=== PATIENT | female | born 2000 | race Caucasian/White ===

== ENCOUNTER → 2020-05-31 | Outpatient (CLI) | payer OTHER ==
[2020-05-31 14:37] LABS: BASOPHILS % (AUTO) 1 % (0-1); EOSINOPHILS % (AUTO) 0 % (1-7); LYMPHOCYTES % (AUTO) 24 % (22-44); MEAN CORPUSCULAR HEMOGLOBIN 31.1 pg (27.0-34.8); MEAN CORPUSCULAR HGB CONC 34.7 g/dL (32.4-35.8); MEAN PLATELET VOLUME 8.3 fL (7.4-10.4); MONOCYTES % (AUTO) 6 % (2-9); NEUTROPHILS % (AUTO) 69 % (42-75); PLATELET COUNT 366 x10^3/uL (130-400); RED CELL DISTRIBUTION WIDTH 12.8 % (9.6-15.2)
[2020-05-31 14:43] LABS: MD NO
[2020-05-31 14:48] LABS: ALBUMIN 4.1 g/dL (3.4-5.0); ANION GAP 7 mmol/L (5-15); CALCIUM 9.2 mg/dL (8.5-10.1); CHLORIDE 104 mmol/L (98-107)
[2020-05-31 14:58] LABS: % IRON SATURATION 40 % (20-55); ALANINE AMINOTRANSFERASE 35 U/L (12-78); ALKALINE PHOSPHATASE 101 U/L (45-117); BILIRUBIN,TOTAL 0.5 mg/dL (0.2-1.0); IRON LEVEL 129 mcg/dL (50-170); T4 (THYROXINE) 9.1 mcg/dL (4.8-13.9); TOTAL IRON BINDING CAPACITY 326 mcg/dL (250-450)
== END | disposition home or self-care (01) ==
LOC: LAB 14:18
PROVIDERS: ATTEND Family Medicine
DX: J35.3 Hypertrophy of tonsils with hypertrophy of adenoids (principal); L21.9 Seborrheic dermatitis, unspecified; L65.8 Other specified nonscarring hair loss
CPT/HCPCS: 36415; 80053; 82306; 83540; 83550; 84436; 84443; 84480; 85025